=== PATIENT | male | born 1935 | race Caucasian/White ===

== ENCOUNTER 2018-10-12 13:20 | Emergency (ER) | payer OTHER ==
[~2018-10-12] VITALS: Ht 167.6 cm; Wt 70.8 kg
[~2018-10-12 13:20] MED LIST: ATENOLOL50 MG PO; COZAAR100 MG PO; DONEPEZIL HCL10 MG PO; GLIPIZIDE5 MG PO; NORCO1 TA2 PO; SIMVASTATIN5 M1 PO; WARFARIN4 M1 PO
[2018-10-12 13:32] VITALS: Ht 167.6 cm; Wt 70.8 kg
[2018-10-12 17:49] VITALS: BP 102/66
== END 2018-10-12 17:58 | disposition home or self-care (01) ==
LOC: ED 13:20
DX: R33.9 Retention of urine, unspecified (principal); B02.9 Zoster without complications; I10 Essential (primary) hypertension; E11.9 Type 2 diabetes mellitus without complications; Z79.01 Long term (current) use of anticoagulants; Z91.013 Allergy to seafood; Z91.018 Allergy to other foods